=== PATIENT | male | born 1970 | race Caucasian/White ===

== ENCOUNTER 2017-04-16 10:41 | Day surgery (SDC) | payer OTHER ==
[~2017-04-16 10:41] MED LIST: PERCOCET 10-321 EACH PO; TRAMADOL HCL50 MG PO
[2017-04-16] MEDS ORDERED: ULTRACET PO (15:19)
[2017-04-16] MEDS ORDERED: KEFLEX500 MG PO (15:20)
== END 2017-04-16 20:40 | disposition home or self-care (01) ==
LOC: CIR.AMB 10:41
DX: N20.0 Calculus of kidney (principal); N20.1 Calculus of ureter; K21.9 Gastro-esophageal reflux disease without esophagitis; G43.809 Other migraine, not intractable, without status migrainosus

== ENCOUNTER 2017-05-18 12:17 | Day surgery (SDC) | payer OTHER ==
[~2017-05-18 12:17] MED LIST changes: +KEFLEX500 MG PO; +ULTRACET PO
[2017-05-18] MEDS ORDERED: KEFLEX500 MG PO (15:50)
[2017-05-18] MEDS ORDERED: TRAMADOL HCL50 MG PO (15:50)
== END 2017-05-18 19:50 | disposition home or self-care (01) ==
LOC: CIR.AMB 12:17
DX: N20.0 Calculus of kidney (principal); N20.1 Calculus of ureter